=== PATIENT | female | born 1955 | race American Indian/Alaskan Native ===

== ENCOUNTER 2017-06-28 09:32 | Outpatient (CLI) | payer MEDICARE ==
--- NOTE | 2017-06-28 12:09 | Mammography Report ---
BILATERAL MAMMOGRAM with CAD: HISTORY:Cancer screening. Comparison study is dated May 30, 2016. FINDINGS: The breasts are almost entirely fat (<25% glandular). No mass, distortion, suspicious calcification, or skin change is seen. IMPRESSION: Negative mammogram. There is no mammographic evidence of malignancy. RECOMMENDATION: Follow-up per ACS guidelines. BI-RADS CATEGORY: 1 = Negative ACR BI-RADS MAMMOGRAPHIC CODES: 0 = Needs additional imaging evaluation; 1 = Negative; 2 = Benign; 3 = Probably benign; 4 = Suspicious; 5 = Malignant; 6 = Known biopsy-proven malignancy COMMENT: 1. Dense breast tissue, i.e., adenosis, fibrocystic changes, etc., may obscure an underlying neoplasm. 2. Approximately 10% of cancers are not detected with mammography. 3. A negative mammography report should not delay biopsy if a clinically suspicious mass is present. COMMENT: Patient follow-up letters are generated in [employer].
== END 2017-06-28 09:33 | disposition home or self-care (01) ==
LOC: MAMMO 09:32
PROVIDERS: ATTEND Family Medicine
DX: Z12.31 Encounter for screening mammogram for malignant neoplasm of breast (principal)
CPT/HCPCS: 77067; G0202

== ENCOUNTER 2018-07-02 10:00 | Outpatient (CLI) | payer MEDICARE ==
--- NOTE | 2018-07-02 13:19 | Mammography Report ---
BILATERAL DIGITAL SCREENING MAMMOGRAM with CAD: 07/02/18 10:00:00 CLINICAL: Routine screening. COMPARISON:06/28/17 FINDINGS: The breasts are almost entirely fatty. No mass, architectural distortion or suspicious calcifications. IMPRESSION: No mammographic evidence of malignancy. BI-RADS CATEGORY: 1 - - Negative RECOMMENDATION: Routine mammographic screening in one year. COMMENT: Patient follow-up letters are generated by our [email or web address] application.
== END 2018-07-02 10:01 | disposition home or self-care (01) ==
LOC: MAMMO 10:00
PROVIDERS: ATTEND Family Medicine
DX: Z12.31 Encounter for screening mammogram for malignant neoplasm of breast (principal)
CPT/HCPCS: 77067

== ENCOUNTER 2019-07-26 10:03 | Outpatient (CLI) | payer MEDICARE ==
--- NOTE | 2019-07-26 15:52 | Mammography Report ---
DIGITAL SCREENING MAMMOGRAM WITH CAD, 07/26/2019 INDICATION: Routine screening mammography. TECHNIQUE: Digital bilateral 2D mammography was obtained in the craniocaudal and mediolateral obliq ue projections. This examination was interpreted with the benefit of Computer-Aided Detection analysi s. COMPARISON: 07/02/2018 FINDINGS: Breast Density: The breasts are almost entirely fatty. There is no evidence of dominant mass, suspicious calcifications or architectural distortion in eithe r breast. IMPRESSION: No mammographic evidence of malignancy. Follow up recommendation: Routine yearly BI-RADS Category 1: Negative. A "normal" or negative report should not discourage follow up or biopsy of a clinically significant f inding. A written summary of these findings will be mailed to the patient. The patient will be entered into a mammography reporting system which will generate a reminder letter for the patient's next appointmen t at the appropriate interval. The [employer] recommends yearly mammograms starting at age 40 and continuing as l lynda as a woman is in good health. Breast MRI is recommended for women with an approximate 20-25% or greater lifetime risk of breast cancer, including women with a strong family history of breast or ova leidy cancer or who have been treated for Hodgkin's disease. Signer Name: Naren Bhatt MD Signed: 07/26/2019 3:47 PM Workstation Name: [id number]
== END 2019-07-26 10:04 | disposition home or self-care (01) ==
LOC: MAMMO 10:03
PROVIDERS: ATTEND Family Medicine
DX: Z12.31 Encounter for screening mammogram for malignant neoplasm of breast (principal)
CPT/HCPCS: 77067

== ENCOUNTER 2021-08-31 10:09 | Outpatient (CLI) | payer MEDICARE ==
--- NOTE | 2021-08-31 15:22 | Mammography Report ---
DIGITAL SCREENING MAMMOGRAM WITH CAD, 08/31/2021 CLINICAL INFORMATION / INDICATION: Routine screening mammography. SCREENING MAMMOGRAM TECHNIQUE: Digital bilateral 2D mammography was obtained in the craniocaudal and mediolateral obliqu e projections. This examination was interpreted with the benefit of Computer-Aided Detection analysis . COMPARISON: August 10, 2020, July 26, 2019, July 02, 2018 FINDINGS: Breast Density: There are scattered areas of fibroglandular density. No dominant mass, suspicious calcifications, or architectural distortion in either breast. IMPRESSION: No mammographic evidence of malignancy. Follow up recommendation: Routine yearly BI-RADS Category 1: Negative. A "normal" or negative report should not discourage follow up or biopsy of a clinically significant f inding. A written summary of these findings will be mailed to the patient. The patient will be entered into a mammography reporting system which will generate a reminder letter for the patient's next appointmen t at the appropriate interval. The [employer] recommends yearly mammograms starting at age 40 and continuing as l lynda as a woman is in good health. Breast MRI is recommended for women with an approximate 20-25% or greater lifetime risk of breast cancer, including women with a strong family history of breast or ova leidy cancer or who have been treated for Hodgkin's disease. Signer Name: Catrachito Davey DO Signed: 08/31/2021 3:18 PM Workstation Name: [id number]
== END 2021-08-31 10:10 | disposition home or self-care (01) ==
LOC: MAMMO 10:09
PROVIDERS: ATTEND Family Medicine
DX: Z12.31 Encounter for screening mammogram for malignant neoplasm of breast (principal)
CPT/HCPCS: 77067

== ENCOUNTER 2022-02-08 08:11 | Day surgery (SDC) | payer MEDICARE ==
[2022-02-08] MEDS ORDERED: ASPIRIN EC 325 MG TAB PO ONE (08:50)
[2022-02-08 09:08] LABS: Basophils % (Auto) 0.5 % (0.0-1.8); Eosinophils # (Auto) 0.1 K/mm3 (0.0-0.4); Eosinophils % (Auto) 2.4 % (0.0-4.3); Hematocrit 40.6 % (30.3-42.9); Hemoglobin 13.9 gm/dl (10.1-14.3); Lymphocytes # (Auto) 1.5 K/mm3 (1.2-5.4); Lymphocytes % (Auto) 31.9 % (13.4-35.0); Mean Corpuscular HGB Conc 34 % (30-34); Mean Corpuscular Volume 90 fl (79-97); Monocytes # (Auto) 0.4 K/mm3 (0.0-0.8); Monocytes % (Auto) 8.7 % (0.0-7.3); Platelet Count 141 K/mm3 (140-440); Red Blood Count 4.49 M/mm3 (3.65-5.03); Red Cell Distribution Width 14.1 % (13.2-15.2)
[2022-02-08 09:17] LABS: INR 0.97 (0.87-1.13)
[2022-02-08 09:18] LABS: Blood Urea Nitrogen 15 mg/dL (7-17); Calcium 9.3 mg/dL (8.4-10.2); Hemolysis Index 5
[2022-02-08 09:19] LABS: BUN/Creatinine Ratio 21
[2022-02-08] MEDS: SODIUM CHLORIDE 0.9% 500 ML 500 ML IV SCH ×2 (09:50→11:00)
[2022-02-08] MEDS ORDERED: HEPARIN/NS 5000 UNIT/500ML 1,000 ML IR ONE (09:54)
[2022-02-08] MEDS ORDERED: fentaNYL 100 MCG/2 ML INJ ONE (09:54)
[2022-02-08] MEDS ORDERED: HEPARIN 10,000 UNITS/10 ML VIAL ONE (09:54)
[2022-02-08] MEDS ORDERED: LIDOCAINE (2%) 20 MG/1 ML VIAL 20 ML MDV INFILTRATI ONE (09:55)
[2022-02-08] MEDS ORDERED: NITROGLYCERIN SYRINGE 0 ML ONE (09:55)
[2022-02-08 10:19] LABS: Partial Thromboplastin Time 29.2 Sec. (24.2-36.6)
[2022-02-08] MEDS: MIDAZOLAM 2 MG/2 ML INJ ONE ×2 (10:33→10:34)
--- NOTE | 2022-02-08 11:00 | Electrocardiograph Report ---
[facility] Test Date: 2022-02-08 Test Time: 09:24:20 Pat Name: AKIL TEJADA Department: Room: Gender: F Staffing Branch Manager: ISREAL : 1955 Requested By: SIDDHARTHA RAMIREZ Order Number: [id number] Reading MD: Uche Keys Measurements Intervals [place] Rate: 76 P: 42 OK: 166 QRS: 8 QRSD: 80 T: 77 QT: 381 QTc: 429 Interpretive Statements Sinus rhythm Low voltage, precordial leads No previous ECG available for comparison Electronically Signed On 02-08-2022 11:00:36 EDT by Uche Keys
--- NOTE | 2022-02-08 11:22 | Discharge Summary ---
Short Stay Discharge Plan Activity: advance as tolerated Weight Bearing Status: Partial Weight Bearing Diet: low fat, low cholesterol, low salt Wound: keep clean and dry Special Instructions: smoking cessation, no heavy lifting (3 days) Follow up with: ARUN GERARDO MD [Primary Care Provider] - 7 Days PEDRO MENARD MD [Staff Physician] - 7 Days
[2022-02-08] MEDS ORDERED: SODIUM CHLORIDE 0.9% 1000 ML 1,000 ML IV SCH (11:30)
[2022-02-08] MEDS ORDERED: traMADol 50 MG TAB PO PRN (11:30)
--- NOTE | 2022-02-08 11:44 | Cardiac Catherization Report ---
DATE OF SERVICE: 02/08/2022 CARDIAC CATHETERIZATION REPORT REASON FOR PROCEDURE: A 66-year-old woman with history of progressive aortic stenosis, referred for right and left heart catheterization for further evaluation of valvular disease. PROCEDURES: 1. Right heart catheterization. 2. Left heart catheterization. 3. Selective left and right coronary angiography. 4. Left ventricular angiography. 5. Sedation time start 10:34, end 10:52. DESCRIPTION OF PROCEDURE: The patient was prepped and draped in a sterile fashion after informed consent. The right femoral artery and vein were both entered using Seldinger technique. A 6-Honduran sheath was placed in the artery and an 8-Honduran sheath in the vein. A Turner-Chip catheter was then introduced into the femoral vein and advanced to the pulmonary artery position. Cardiac output was measured using the thermodilution method. A right Juan David catheter was then advanced into the left ventricle. Simultaneous left and right heart filling pressures were then measured. The Turner-Chip catheter was then withdrawn and right heart pressures recorded on pullback. Hand injection, left ventriculogram was then performed using the right Juan David catheter. The right Juan David was then withdrawn across the aortic valve, and transaortic gradient recorded. Finally, somewhat selective left and right coronary angiography was performed using a #4 right Juan David and a #4 left Juan David. The catheters were then withdrawn, sheath withdrawn, and the hemostasis over the arterial site achieved using an Angio-Seal device and over the venous site using manual compression. The patient was returned to the postprocedure unit in stable condition. There were no complications. FINDINGS: HEMODYNAMICS: The mean right atrial pressure was 15. Right ventricular pressure was 50/20. Pulmonary artery pressure was 50/25. The mean pulmonary artery wedge pressure was 25. Cardiac output was 5.35 liters per minute. Cardiac index was 2.66 liters per minute. Left ventricular end-diastolic pressure was 25. Ascending aortic pressure was 165/70. Aortic stenosis: On pullback across the aortic valve, there was a 21-mm [id number] gradient. The mean gradient was 22 mmHg. Using the Gorlin equation, the calculated aortic valve area was 1.39 square cm. CONCLUSIONS: 1. Mild to moderate increase in right and left heart filling pressures, moderate pulmonary hypertension. 2. No significant transmitral valve gradient, no evidence of significant mitral stenosis. 3. Mild to moderate aortic stenosis, with a mean transaortic gradient of 22, and an aortic valve area of 1.39. 4. Mild diffuse luminal atherosclerosis, with no significant obstructive coronary disease. 5. Hyperdynamic left ventricular systolic function with ejection fraction greater than 65-70%. RECOMMENDATIONS: 1. Aggressive risk factor modification. 2. Continued clinical followup of progressive aortic stenosis. 3. Recommend a trial of negative inotropic with verapamil, or metoprolol for optimal management of hyperdynamic left ventricle. TID: [id number] RECEIPT: [id number] ELIZABETH
[2022-02-08 14:23] VITALS: BP 142/90
[2022-02-08 14:37] LABS: Hepatitis B Surface Antigen Non-Reactive (Negative); Hepatitis C Virus Antibody Non-Reactive (NonReactive)
== END 2022-02-08 08:12 | disposition home or self-care (01) ==
LOC: CATH 08:11 → CATHLABREC 08:11
PROVIDERS: ATTEND Internal Medicine Cardiovascular Disease
DX: I35.0 Nonrheumatic aortic (valve) stenosis (principal); I27.20 Pulmonary hypertension, unspecified; E78.00 Pure hypercholesterolemia, unspecified; I10 Essential (primary) hypertension; Z98.891 History of uterine scar from previous surgery; Z79.899 Other long term (current) drug therapy; Z79.82 Long term (current) use of aspirin; Z98.890 Other specified postprocedural states
CPT/HCPCS: 36415; 80048; 80074; 85025; 85610; 85730; 87806; 93005; 93460; 99156; C1760; C1894; J1644; J2250; J3010; J3490; J7040; J1815; Q9967